=== PATIENT | male | born 1950 | race Caucasian/White ===

== ENCOUNTER 2019-06-01 09:20 | Day surgery (SDC) | payer BC ==
[2019-05-31 11:20] VITALS: BMI 29.1
[2019-06-01] MEDS ORDERED: Ondansetron PF 4 MG/2 ML Vial ONE (10:42)
[2019-06-01] MEDS ORDERED: Midazolam HCl 2 mg/2 ml Vial ONE (10:42)
[2019-06-01] MEDS ORDERED: Thrombin 5000 UNITS/5 ML VIAL ONE (10:51)
[2019-06-01] MEDS ORDERED: Fentanyl 100 MCG/2 ML VIAL ONE ×5 (10:57→15:12)
[2019-06-01] MEDS ORDERED: PHENYLEPHRINE-NS 100 MCG/ML 10 ML SYRINGE ONE (12:27)
[2019-06-01] MEDS ORDERED: Tamsulosin HCl 0.4 MG CAP ONE (14:01)
[2019-06-01] MEDS ORDERED: Cyclobenzaprine 10 MG TAB ONE (14:11)
[2019-06-01] MEDS ORDERED: tiZANidine HCl 4 MG TAB ONE ×2 (14:11→14:12)
[2019-06-01] MEDS ORDERED: Labetalol HCl 100 MG/20 ML VIAL ONE (14:40)
--- NOTE | 2019-06-01 18:21 | OP ---
DATE OF PROCEDURE: 06/01/2019 FRAME REPAIRER: Anand Kennedy PA-C INDICATION: Pain. DIAGNOSES: 1. Cervical radiculopathy. 2. 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 ANESTHESIA: General. PROCEDURE PERFORMED: C4 through C6 anterior cervical discectomy and fusion. DESCRIPTION OF PROCEDURE: The patient was brought into the operating room and placed under general anesthesia. He was placed on table in a supine position. A transverse incision was planned over the lateral aspect of the neck on the right. After prepping and draping and after an appropriate operative pause, the incision was created. The underlying platysma muscle was identified and incised. A blunt tissue plane anterior to the sternocleidomastoid muscle was used to gain access to the prevertebral space. Self-retaining retractors were then placed for optimal exposure. After confirming the appropriate level with C-arm fluoroscopy, an annulotomy was performed in the C5-C6 disk space. All disk material as well as anterior and posterior osteophytes were removed. A 7-mm lordotic PEEK cage packed with allograft and autograft material was then placed within the interbody space. We then redirected our attention to the level above at C4-C5, where again an annulotomy was performed. All disk material and anterior and posterior osteophytes was removed. This level required the use of distraction pins due to the small disk space. Under distraction, the remaining portion of the segment was decompressed. A 7-mm lordotic PEEK cage packed with allograft and autograft material was then placed within the interbody space. An anterior cervical plate was then fashioned to the front of spine and secured with a total of 6 screws. Midline and lateral structures were inspected and found to be free from significant trauma. The wound was irrigated. Hemostasis was maintained throughout. The wound was then closed in anatomic layers and a pressure dressing was applied. There were no known procedural complications. Job ID: [id number]
== END 2019-06-01 17:40 | disposition home or self-care (01) ==
LOC: SDC 09:20
PROVIDERS: ATTEND Neurological Surgery
PROC: 0RG20A0 Fusion of 2 or more Cervical Vertebral Joints with Interbody Fusion Device, Anterior Approach, Anterior Column, Open Approach (ICD-10-PCS; principal; 2019-06-01)
PROC: 0RT30ZZ Resection of Cervical Vertebral Disc, Open Approach (ICD-10-PCS; principal; 2019-06-01)
PROC: 0RG2070 Fusion of 2 or more Cervical Vertebral Joints with Autologous Tissue Substitute, Anterior Approach, Anterior Column, Open Approach (ICD-10-PCS; principal; 2019-06-01)
DX: M54.12 Radiculopathy, cervical region (principal); M48.02 Spinal stenosis, cervical region; Z88.5 Allergy status to narcotic agent; Z91.041 Radiographic dye allergy status; Z99.89 Dependence on other enabling machines and devices
CPT/HCPCS: 76000; C1713; C1776; J0690; J2250; J2405; J3010